=== PATIENT | female | born 1940 | race Two or more races ===

== ENCOUNTER 2024-04-20 11:55 | Inpatient (IN) | payer MEDICAID, OTHER ==
[~2024-04-20] VITALS: Ht 147.3 cm; Wt 63.6 kg
[2024-04-20 12:44] LABS: Basophils # (auto) 0 10 ^3/uL (0-0.2); Eosinophils # (auto) 0.1 10 ^3/uL (0-0.8); Hemoglobin 13.3 g/dL (12.2-16.2); Lymphocytes # (auto) 1.6 10 ^3/uL (0.4-5.4); Mean Corpuscular Hgb Conc. 33.1 g/dL (32.0-36.0); Monocytes # (auto) 0.2 10 ^3/uL (0-1.3)
[2024-04-20 12:46] LABS: Alanine Aminotransferase 22 U/L (7-40); Alkaline Phosphatase 157 U/L (46-116); Anion Gap 8 (5-15); Aspartate Aminotransferase 45 U/L (13-40); Bilirubin, Total 0.8 mg/dL (0.2-1.0); Calcium 9.7 mg/dL (8.5-10.1); Carbon Dioxide 24 mmol/L (20-30); Chloride 106 mmol/L (98-107); Glucose 107 mg/dL (74-106); Potassium 3.3 mmol/L (3.5-5.1); Sodium 138 mmol/L (136-145); Total Protein 6.6 g/dL (5.7-8.2)
[2024-04-20 12:47] LABS: Basophils % (auto) 0.4 % (0.0-2.0); Blood Urea Nitrogen < 5 mg/dL (9-23); Eosinophils % (auto) 2.2 % (0.0-7.0); Hematocrit 40.1 % (36.0-46.0); Mean Corpuscular Hemoglobin 33.7 pg (28.0-32.0); Mean Corpuscular Volume 101.7 fL (80.0-100.0); Monocytes % (auto) 3.1 % (0.0-12.0); Neutrophils # (auto) 3.1 10 ^3/uL (1.6-8.6); Neutrophils % (auto) 62.3 % (37.0-80.0); Red Blood Cells 3.95 10^6/uL (4.0-5.20); Red Cell Distribution Width 13.9 % (11.8-14.3)
[2024-04-20] MEDS ORDERED: ACETAMINOPHEN 325 MG TAB PO PRN (17:45)
[2024-04-20] MEDS ORDERED: NITROGLYCERIN 0.4 MG SL TAB SL PRN (17:45)
[2024-04-20] MEDS ORDERED: DOCUSATE SOD 100 MG CAP PO PRN (17:45)
[2024-04-20 18:00] VITALS: PULSE 83; RESP 14; O2SAT 94
[2024-04-20] MEDS: SODIUM CHLORIDE 0.9% 500 ML IVB ONE (18:12)
[2024-04-20] MEDS: SODIUM CHLORIDE 0.9% 500 ML IV ONE (18:12)
[2024-04-20] MEDS: POTASSIUM CHL 20MEQ/100ML 100 ML IV ONE (18:34)
[2024-04-20 19:41] VITALS: PULSE 82; RESP 29; O2SAT 94
[2024-04-20] MEDS: ONDANSETRON HCL 4 MG/2 ML VIAL IV ONE (19:47)
[2024-04-20] MEDS: MORPHINE SULFATE 4 MG/ML SYR/VIAL IV ONE (19:48)
[2024-04-20] MEDS: MORPHINE SULFATE INJ 2 MG/ml SYRG IV PRN (20:06)
[2024-04-20] MEDS: ONDANSETRON HCL 4 MG/2 ML VIAL IV PRN (20:06)
[2024-04-21] VITALS (7 sets, daily range): BP systolic 92–98; BP diastolic 48–63; PULSE 110–133; RESP 22–28; O2SAT 95–98
[2024-04-21] MEDS: HYDROcodone-ACET 5/325MG TAB PO PRN (02:54)
[2024-04-21 05:38] LABS: Basophils # (auto) 0 10 ^3/uL (0-0.2); Eosinophils # (auto) 0 10 ^3/uL (0-0.8); Hemoglobin 12.9 g/dL (12.2-16.2); Monocytes # (auto) 0.4 10 ^3/uL (0-1.3); Neutrophils # (auto) 8.3 10 ^3/uL (1.6-8.6)
[2024-04-21 05:42] LABS: Hematocrit 37.9 % (36.0-46.0); Lymphocytes # (auto) 0.6 10 ^3/uL (0.4-5.4); Lymphocytes % (auto) 6.1 % (10.0-50.0); Mean Corpuscular Hemoglobin 34.7 pg (28.0-32.0); Mean Corpuscular Hgb Conc. 33.9 g/dL (32.0-36.0); Mean Corpuscular Volume 102.1 fL (80.0-100.0); Monocytes % (auto) 4.5 % (0.0-12.0); Neutrophils % (auto) 89.4 % (37.0-80.0); Red Blood Cells 3.71 10^6/uL (4.0-5.20); Red Cell Distribution Width 14.1 % (11.8-14.3); White Blood Cell 9.3 10^3/uL (4.4-10.8)
[2024-04-21 05:53] LABS: Alanine Aminotransferase 17 U/L (7-40); Alkaline Phosphatase 92 U/L (46-116); Anion Gap 8 (5-15); BUN/Creatinine Ratio 14.7 (10.0-20.0); Blood Urea Nitrogen 10 mg/dL (9-23); Calcium 9.1 mg/dL (8.5-10.1); Carbon Dioxide 20 mmol/L (20-30); Chloride 111 mmol/L (98-107); Glucose 97 mg/dL (74-106); Potassium 4.2 mmol/L (3.5-5.1); Sodium 139 mmol/L (136-145)
[2024-04-21 05:54] LABS: Albumin 3.4 g/dL (3.2-4.8); Aspartate Aminotransferase 35 U/L (13-40); Bilirubin, Total 0.7 mg/dL (0.2-1.0); Total Protein 5.6 g/dL (5.7-8.2)
[2024-04-21] MEDS: ALBUMIN 5% 250 ML IV ONE (06:07)
[2024-04-21 08:38] LABS: Triglycerides 83 mg/dL (< 150)
[2024-04-21 08:39] LABS: LDL Cholesterol 60 mg/dL (< 100)
[2024-04-21 08:40] LABS: Cholesterol 139 mg/dL (< 200); HDL Cholesterol 57 mg/dL (40-59)
[2024-04-21] MEDS ORDERED: cefTRIAXone 1GM/50ML D5W 50 ML IV SCH (09:00)
[2024-04-21 09:02] LABS: Lipase 21 U/L (12-53)
[2024-04-21] MEDS: cefTRIAXone 1GM/50ML D5W 50 ML IV ONE (09:22)
[2024-04-21] MEDS ORDERED: PHENYLEPHRINE IV 250 ML IV SCH (09:45)
[2024-04-21] MEDS: PHENYLEPHRINE IV 250 ML IV ONE (09:51)
[2024-04-21] MEDS ORDERED: AZITHROMYCIN 500MG/ 250ML 250 ML IV SCH (10:00)
[2024-04-21 10:18] LABS: Lactic Acid w/Reflex 4.1 mmol/L (0.4-2.0)
[2024-04-21 10:30] LABS: Urine Bacteria FEW /hpf (None Seen); Urine Blood Negative /uL (Negative); Urine Clarity Turbid (Clear); Urine Color Orange (Yellow); Urine Hyaline Cast FEW /lpf (0 - 2); Urine Mucus FEW (None Seen); Urine Protein, UAD 1+ (Negative); Urine Specific Gravity 1.029 (1.001-1.035); Urine Urobilinogen Normal (Negative); Urine WBC 6 /hpf (0 - 5)
[2024-04-21] MEDS: PHENYLEPHRINE INJ 80 MG in SODIUM CHL 0.9% 242 ML IV SCH (10:39)
[2024-04-21 10:42] LABS: Base Excess -13.7 mmol/L (-2.0-2.0)
[2024-04-21] MEDS ORDERED: SODIUM CHLORIDE 0.9% 1,000 ML IV SCH (10:45)
[2024-04-21] MEDS: SODIUM CHLORIDE 0.9% 1,000 ML IV ONE ×2 (10:45→11:13)
[2024-04-21] MEDS ORDERED: VANCOMYCIN PER PHARMACY 0 MG IV SCH (11:00)
[2024-04-21] MEDS ORDERED: fentaNYL Drip 2500mCg/250mlNS 250 ML IV SCH (11:00)
[2024-04-21] MEDS ORDERED: PROPOFOL 100 ML IV SCH (11:00)
[2024-04-21 11:03] LABS: INR 1.32 (0.9-1.15); Partial Thromboplastin Time 32.5 SEC (24.5-34.5); Prothrombin Time 13.7 sec (9.3-11.8)
[2024-04-21] MEDS: ETOMIDATE (2MG/ML) 20ML VIAL IV ONE (11:19)
[2024-04-21] MEDS: ROCURONIUM 10MG/ML 10ML VIAL IV ONE (11:20)
[2024-04-21] MEDS: LORazepam 2MG/ML-1ML VIAL ONE (11:30)
[2024-04-21] MEDS: SODIUM BICARB 8.4% 50Meq/50ml SYR Vial IV ONE (11:30)
[2024-04-21] MEDS ORDERED: LABETALOL HCL 5 MG/ML 4ML SYRINGE IV PRN (11:30)
[2024-04-21] MEDS: ENOXAPARIN SOD 30 MG/0.3 ML SYRINGE SC ONE (11:31)
[2024-04-21] MEDS: IOHEXOL 350 MG/ML 100ML IJ ONE (12:02)
[2024-04-21] MEDS: NOREPINEPHRINE 8 MG/250ML KIT 250 ML IV SCH (12:15)
[2024-04-21] MEDS: PANTOPRAZOLE 40 MG/10 ML VIAL INJ IV ONE (12:16)
[2024-04-21] MEDS: MAGNESIUM SULFATE 1GM/100ML 100 ML IV ONE (12:17)
[2024-04-21] MEDS: LORazepam 2MG/ML-1ML VIAL IV ONE (12:40)
[2024-04-21] MEDS: NOREPINEPHRINE 8 MG/250ML KIT 250 ML IV ONE (12:58)
[2024-04-21] MEDS: SODIUM BICARB 50mEq/50ml Vial 150 ML in D5W 5% 1,000 ML IV SCH (13:31)
[2024-04-21] MEDS: CEFEPIME 1GM/ 50ML 50 ML IV ONE (13:41)
[2024-04-21 13:42] LABS: Base Excess -11.5 mmol/L (-2.0-2.0)
[2024-04-21] MEDS: VANCOMYCIN 750mg/150ml 150 ML IV ONE (13:47)
[2024-04-21] MEDS ORDERED: CEFEPIME 1GM/ 50ML 50 ML IV SCH (14:00)
[2024-04-21] MEDS: VASOPRESSIN 20 UNIT/ML ONE (16:32)
[2024-04-21] MEDS: VASOPRESSIN 20 UNITS in SODIUM CHL 0.9% 99 ML IV SCH (16:33)
[2024-04-21] MEDS ORDERED: ENOXAPARIN SOD 30 MG/0.3 ML SYRINGE SC ONE (17:00)
[2024-04-21 17:46] LABS: Urine Bacteria FEW /hpf (None Seen); Urine Blood 3+ /uL (Negative); Urine Clarity Turbid (Clear); Urine Color Orange (Yellow); Urine Hyaline Cast FEW /lpf (0 - 2); Urine Mucus FEW (None Seen); Urine Protein, UAD 2+ (Negative); Urine Specific Gravity 1.028 (1.001-1.035); Urine Urobilinogen Normal (Negative); Urine WBC 4 /hpf (0 - 5)
[2024-04-21 19:21] LABS: Free T4 (Free Thyroxine) 0.89 ng/dL (0.89-1.76)
[2024-04-21 19:22] LABS: Free T3 1.43 pg/mL (2.3-4.2)
[2024-04-21] MEDS: CEFEPIME 1GM/ 50ML 50 ML IV SCH (20:15)
[2024-04-21] MEDS: ALBUMIN 25% 50 ML IV ONE (20:58)
[2024-04-21 21:30] LABS: COVID19 ANTIGEN SOFIA FIA NEGATIVE (NEGATIVE); Rapid Influenza A Negative (Negative); Rapid Influenza B Negative (Negative)
[2024-04-21] MEDS: BUMETANIDE 2.5mg/10ml (0.25 mg/ml) INJ IV ONE (21:43)
[2024-04-21] MEDS: LORazepam 2MG/ML-1ML VIAL IV PRN (22:12)
[2024-04-21] MEDS: AMIODARONE BOLUS KIT 100 ML IV ONE (23:14)
[2024-04-21] MEDS: AMIODARONE HCL (50 MG/ ML) 3 ML VIAL IV ONE (23:14)
[2024-04-21] MEDS: AMIODARONE 450mg/250ml AE 250 ML IV SCH (23:55)
[2024-04-21] MEDS: AMIODARONE 450mg/250ml AE 250 ML IV ONE (23:55)
[2024-04-22] VITALS (68 sets, daily range): BP systolic 86–139; BP diastolic 47–67; PULSE 89–119; RESP 16–30; TEMP 99–101.1; O2SAT 91–100
[2024-04-22] MEDS: VASOPRESSIN 20 UNIT/ML ONE (01:13)
[2024-04-22] MEDS: SODIUM BICARB 8.4% 50Meq/50ml SYR Vial IV ONE (04:17)
[2024-04-22 06:05] LABS: Hemoglobin 12.7 g/dL (12.2-16.2); White Blood Cell 12.9 10^3/uL (4.4-10.8)
[2024-04-22] MEDS: AMIODARONE 450mg/250ml AE 250 ML IV SCH (06:07)
[2024-04-22 06:09] LABS: Hematocrit 38.5 % (36.0-46.0); Mean Corpuscular Hemoglobin 34.1 pg (28.0-32.0); Mean Corpuscular Hgb Conc. 33.1 g/dL (32.0-36.0); Red Blood Cells 3.74 10^6/uL (4.0-5.20); Red Cell Distribution Width 14.8 % (11.8-14.3)
[2024-04-22 06:20] LABS: Basophils % (manual) 0 (0.0-2.0); Blast Cells 0; Eosinophils % (manual) 0 (0-7); Promyelocytes % 0; Reactive Lymphocytes 0
[2024-04-22 06:25] LABS: Alanine Aminotransferase 21 U/L (7-40); Alkaline Phosphatase 54 U/L (46-116); Anion Gap 15 (5-15); Aspartate Aminotransferase 58 U/L (13-40); Blood Urea Nitrogen 15 mg/dL (9-23); Calcium 8.4 mg/dL (8.5-10.1); Carbon Dioxide 18 mmol/L (20-30); Chloride 108 mmol/L (98-107); Glucose 97 mg/dL (74-106); Lactic Acid w/Reflex 7.7 mmol/L (0.4-2.0); Magnesium 1.5 mg/dL (1.6-2.6); Potassium 3.8 mmol/L (3.5-5.1); Sodium 141 mmol/L (136-145)
[2024-04-22 06:26] LABS: Bilirubin, Total 0.8 mg/dL (0.2-1.0); Phosphorus 4.4 mg/dL (2.4-5.1); Total Protein 4.8 g/dL (5.7-8.2)
[2024-04-22 06:34] LABS: Band Neutrophils % (manual) 37; Lymphocytes % (manual) 11 (10.0-50.0); Metamyelocytes % 2; Monocytes % (manual) 11 (0-12); Myelocytes % 1; Platelet Estimate Adequate
[2024-04-22] MEDS: MEROPENEM 1GM IVPB 50 ML IV ONE (07:30)
[2024-04-22 07:47] LABS: Base Excess -7.7 mmol/L (-2.0-2.0)
[2024-04-22] MEDS ORDERED: cefTRIAXone 1GM/50ML D5W 50 ML IV SCH (09:00)
[2024-04-22] MEDS: MAGNESIUM SULFATE 1GM/100ML 100 ML IV ONE (09:40)
[2024-04-22] MEDS: FUROSEMIDE 40 MG/4 ML VIAL IV ONE (09:41)
[2024-04-22] MEDS ORDERED: ENOXAPARIN SOD 30 MG/0.3 ML SYRINGE SC SCH (10:00)
[2024-04-22] MEDS: ENOXAPARIN SOD 30 MG/0.3 ML SYRINGE SC SCH (10:00)
[2024-04-22] MEDS: PANTOPRAZOLE 40 MG/10 ML VIAL INJ IV SCH (10:00)
[2024-04-22] MEDS ORDERED: VANCOMYCIN 750mg/150ml 150 ML IV SCH (11:00)
[2024-04-22 11:18] LABS: Base Excess -6.8 mmol/L (-2.0-2.0)
[2024-04-22] MEDS ORDERED: ACETAMINOPHEN 325 MG RECT SUPP PR PRN (11:30)
[2024-04-22] MEDS: HYDROCORTISONE SOD SUCC 100 MG/2ML INJ VIAL IV SCH (14:58)
[2024-04-22] MEDS: VANCOMYCIN 750mg/150ml 150 ML IV SCH (15:03)
[2024-04-22] MEDS: FUROSEMIDE INJECTION 100 MG in SODIUM CHL 0.9% 100 ML IV SCH (15:06)
[2024-04-22] MEDS: MEROPENEM 1GM IVPB 50 ML IV SCH (16:33)
[2024-04-22] MEDS ORDERED: FUROSEMIDE 40 MG/4 ML VIAL IV SCH (18:00)
[2024-04-22 18:47] LABS: Protein, Urine 23.9 mg/dL (0.0-11.9); Protein, Urine 24.6 mg/dL (0.0-11.9)
[2024-04-22 18:49] LABS: Creatinine, Urine 15.94 mg/dL (30.0-125.0); Urine Protein/Creatinine Ratio 1.5
[2024-04-22 18:50] LABS: Creatinine, Urine 16.14 mg/dL (30.0-125.0); Urine Protein/Creatinine Ratio 1.52
[2024-04-22 20:11] LABS: Chloride 104 mmol/L (98-107); Potassium 3.3 mmol/L (3.5-5.1); Sodium 139 mmol/L (136-145)
[2024-04-22 20:12] LABS: Anion Gap 13 (5-15); Calcium 7.8 mg/dL (8.5-10.1); Carbon Dioxide 22 mmol/L (20-30)
[2024-04-22 20:17] LABS: BUN/Creatinine Ratio 18.2 (10.0-20.0); Blood Urea Nitrogen 18 mg/dL (9-23); Glucose 80 mg/dL (74-106)
[2024-04-23] VITALS (106 sets, daily range): BP systolic 67–167; BP diastolic 17–68; PULSE 88–144; RESP 13–33; TEMP 97.7–99.3; O2SAT 81–100
[2024-04-23] MEDS: POTASSIUM CHL 20MEQ/100ML 100 ML IV SCH (02:03)
[2024-04-23 05:14] LABS: Hematocrit 34.6 % (36.0-46.0); Hemoglobin 11.6 g/dL (12.2-16.2); Mean Corpuscular Hemoglobin 33.9 pg (28.0-32.0); Mean Corpuscular Hgb Conc. 33.6 g/dL (32.0-36.0); Red Blood Cells 3.42 10^6/uL (4.0-5.20); Red Cell Distribution Width 14.5 % (11.8-14.3); White Blood Cell 22.2 10^3/uL (4.4-10.8)
[2024-04-23 05:17] LABS: Basophils % (manual) 0 (0.0-2.0); Blast Cells 0; Eosinophils % (manual) 0 (0-7); Myelocytes % 0; Promyelocytes % 0; Reactive Lymphocytes 0
[2024-04-23 05:33] LABS: Band Neutrophils % (manual) 26; Lymphocytes % (manual) 5 (10.0-50.0); Metamyelocytes % 2; Monocytes % (manual) 6 (0-12); Platelet Estimate Decreased
[2024-04-23 05:34] LABS: Alanine Aminotransferase 35 U/L (7-40); Albumin 2.5 g/dL (3.2-4.8); Alkaline Phosphatase 79 U/L (46-116); Anion Gap 11 (5-15); Aspartate Aminotransferase 103 U/L (13-40); BUN/Creatinine Ratio 21.3 (10.0-20.0); Blood Urea Nitrogen 19 mg/dL (9-23); Calcium 7.8 mg/dL (8.7-10.4); Carbon Dioxide 26 mmol/L (20-30); Chloride 102 mmol/L (98-107); Glucose 93 mg/dL (74-106); Magnesium 1.5 mg/dL (1.6-2.6); Sodium 139 mmol/L (136-145)
[2024-04-23 05:35] LABS: Total Protein 4.2 g/dL (5.7-8.2)
[2024-04-23 05:37] LABS: Lactic Acid w/Reflex 9.4 mmol/L (0.4-2.0)
[2024-04-23] MEDS: SODIUM CHLORIDE 0.9% 500 ML IV ONE (06:30)
[2024-04-23 07:01] LABS: Base Excess -2.7 mmol/L (-2.0-2.0)
[2024-04-23] MEDS ORDERED: MAGNESIUM SULFATE 1GM/100ML 100 ML IV ONE (08:30)
[2024-04-23] MEDS: FUROSEMIDE 100 MG/10ML VIAL IV SCH (09:24)
[2024-04-23] MEDS: MAGNESIUM SULFATE 1GM/100ML 100 ML IV SCH (09:28)
[2024-04-23 10:46] LABS: Base Excess -2.6 mmol/L (-2.0-2.0)
[2024-04-23] MEDS ORDERED: HYDROcodone-ACET 5/325MG TAB PO PRN (12:30)
[2024-04-23] MEDS ORDERED: AMIODARONE 450mg/250ml AE 250 ML IV SCH (12:30)
[2024-04-23] MEDS: MORPHINE SULFATE INJ 2 MG/ml SYRG IV PRN (12:49)
[2024-04-23 13:29] LABS: Base Excess -1.8 mmol/L (-2.0-2.0)
[2024-04-23] MEDS: AMIODARONE 450mg/250ml AE 250 ML IV SCH (18:00)
[2024-04-23 21:01] LABS: Base Excess 3.7 mmol/L (-2.0-2.0)
[2024-04-23] MEDS: HYDROCORTISONE SOD SUCC 100 MG/2ML INJ VIAL IV SCH (21:10)
[2024-04-24] VITALS (97 sets, daily range): BP systolic 91–132; BP diastolic 30–69; PULSE 79–116; RESP 13–27; TEMP 97.9–99; O2SAT 90–99
[2024-04-24 04:46] LABS: Alanine Aminotransferase 64 U/L (7-40); Albumin 2.6 g/dL (3.2-4.8); Alkaline Phosphatase 103 U/L (46-116); Anion Gap 10 (5-15); Aspartate Aminotransferase 166 U/L (13-40); BUN/Creatinine Ratio 19.8 (10.0-20.0); Bilirubin, Total 1.4 mg/dL (0.2-1.0); Blood Urea Nitrogen 18 mg/dL (9-23); Calcium 8.7 mg/dL (8.7-10.4); Carbon Dioxide 27 mmol/L (20-30); Chloride 101 mmol/L (98-107); Glucose 54 mg/dL (74-106); Magnesium 2.2 mg/dL (1.6-2.6); Potassium 4.3 mmol/L (3.5-5.1); Sodium 138 mmol/L (136-145)
[2024-04-24 04:47] LABS: Total Protein 4.7 g/dL (5.7-8.2)
[2024-04-24 04:53] LABS: Lactic Acid w/Reflex 5.6 mmol/L (0.4-2.0)
[2024-04-24 07:12] LABS: Base Excess 0.9 mmol/L (-2.0-2.0)
[2024-04-24 07:19] LABS: Hematocrit 40.7 % (36.0-46.0); Hemoglobin 13.4 g/dL (12.2-16.2); Mean Corpuscular Volume 100.2 fL (80.0-100.0); Red Blood Cells 4.06 10^6/uL (4.0-5.20); Red Cell Distribution Width 14.6 % (11.8-14.3); White Blood Cell 23.3 10^3/uL (4.4-10.8)
[2024-04-24 07:36] LABS: Basophils % (manual) 0 (0.0-2.0); Blast Cells 0; Eosinophils % (manual) 0 (0-7); Metamyelocytes % 0; Myelocytes % 0; Promyelocytes % 0; Reactive Lymphocytes 0
[2024-04-24 08:00] LABS: Lymphocytes % (manual) 4 (10.0-50.0); Monocytes % (manual) 4 (0-12)
[2024-04-24 08:01] LABS: Band Neutrophils % (manual) 12
[2024-04-24 08:02] LABS: Anisocytosis Slight; Macrocytosis Slight; Platelet Estimate Decreased
[2024-04-24 08:06] LABS: Immunoglobulin A 95 mg/dL (64-422); Immunoglobulin G, Serum 630 mg/dL (586-1602); Immunoglobulin M 29 mg/dL (26-217)
[2024-04-24] MEDS ORDERED: MICAFUNGIN SODIUM 100 MG in SODIUM CHL 0.9% 100 ML IV SCH (13:30)
[2024-04-24] MEDS: MICAFUNGIN SODIUM 100 MG in SODIUM CHL 0.9% 100 ML IV SCH (17:43)
[2024-04-24] MEDS: NOREPINEPHRINE 8 MG/250ML KIT 250 ML IV SCH (17:45)
[2024-04-24] MEDS: FUROSEMIDE INJECTION 100 MG in SODIUM CHL 0.9% 100 ML IV SCH (18:39)
[2024-04-25] VITALS (85 sets, daily range): BP systolic 91–129; BP diastolic 27–56; PULSE 45–102; RESP 12–22; TEMP 97.2–98.2; O2SAT 51–100
[2024-04-25 04:08] LABS: Chloride 104 mmol/L (98-107); Potassium 3.7 mmol/L (3.5-5.1); Sodium 140 mmol/L (136-145)
[2024-04-25 04:09] LABS: Anion Gap 7 (5-15); Carbon Dioxide 29 mmol/L (20-30)
[2024-04-25 04:10] LABS: Calcium 8.5 mg/dL (8.5-10.1)
[2024-04-25 04:14] LABS: Glucose 96 mg/dL (74-106)
[2024-04-25 04:18] LABS: Red Blood Cells 3.47 10^6/uL (4.0-5.20)
[2024-04-25 04:20] LABS: Hematocrit 34.6 % (36.0-46.0); Hemoglobin 11.8 g/dL (12.2-16.2); Mean Corpuscular Hgb Conc. 34.1 g/dL (32.0-36.0); Mean Corpuscular Volume 99.7 fL (80.0-100.0); Red Cell Distribution Width 14.7 % (11.8-14.3); White Blood Cell 25.6 10^3/uL (4.4-10.8)
[2024-04-25 04:21] LABS: Blood Urea Nitrogen 36 mg/dL (9-23)
[2024-04-25 04:44] LABS: Basophils % (manual) 0 (0.0-2.0); Blast Cells 0; Eosinophils % (manual) 0 (0-7); Metamyelocytes % 0; Myelocytes % 0; Promyelocytes % 0; Reactive Lymphocytes 0
[2024-04-25 06:54] LABS: Band Neutrophils % (manual) 12; Lymphocytes % (manual) 1 (10.0-50.0); Monocytes % (manual) 4 (0-12); Platelet Estimate Decreased
[2024-04-25] MEDS: VANCOMYCIN 750mg/150ml 150 ML IV SCH (10:19)
[2024-04-25] MEDS ORDERED: LORazepam 2MG/ML-1ML VIAL IV PRN (17:45)
[2024-04-25] MEDS: MORPHINE SULFATE INJ 2 MG/ml SYRG IV PRN (18:10)
[2024-04-26 14:06] LABS: Albumin 2.1 g/dL (2.9-4.4); Alpha-1-Globulin 0.3 g/dL (0.0-0.4); Alpha-2-Globulin 0.5 g/dL (0.4-1.0); Gamma Globulin 0.6 g/dL (0.4-1.8); Globulin Total 1.7 g/dL (2.2-3.9); Protein Total Serum 3.8 g/dL (6.0-8.5)
== END 2024-04-25 18:42 | DRG 720 ==
LOC: ER 11:55 → OVERFLOW 17:40 → ICU WEST 04-22 10:03
PROVIDERS: ADMIT Internal Medicine Pulmonary Disease; ATTEND Internal Medicine Pulmonary Disease
PROC: 06HY33Z Insertion of Infusion Device into Lower Vein, Percutaneous Approach (ICD-10-PCS; principal; 2024-04-21)
PROC: B54BZZA Ultrasonography of Right Lower Extremity Veins, Guidance (ICD-10-PCS; 2024-04-21)
PROC: 5A09357 Assistance with Respiratory Ventilation, Less than 24 Consecutive Hours, Continuous Positive Airway Pressure (ICD-10-PCS; 2024-04-21)
PROC: 5A0935A Assistance with Respiratory Ventilation, Less than 24 Consecutive Hours, High Flow/Velocity Cannula (ICD-10-PCS; 2024-04-21)
PROC: 5A09457 Assistance with Respiratory Ventilation, 24-96 Consecutive Hours, Continuous Positive Airway Pressure (ICD-10-PCS; 2024-04-22)
PROC: 5A0945A Assistance with Respiratory Ventilation, 24-96 Consecutive Hours, High Flow/Velocity Cannula (ICD-10-PCS; 2024-04-23)
PROC: 5A09357 Assistance with Respiratory Ventilation, Less than 24 Consecutive Hours, Continuous Positive Airway Pressure (ICD-10-PCS; 2024-04-25)
DX: A41.9 Sepsis, unspecified organism (principal); J96.01 Acute respiratory failure with hypoxia; R65.21 Severe sepsis with septic shock; G93.41 Metabolic encephalopathy; I50.43 Acute on chronic combined systolic (congestive) and diastolic (congestive) heart failure; J15.69 Pneumonia due to other Gram-negative bacteria; D69.6 Thrombocytopenia, unspecified; E87.4 Mixed disorder of acid-base balance; I21.A1 Myocardial infarction type 2; J15.9 Unspecified bacterial pneumonia; J90 Pleural effusion, not elsewhere classified; N17.9 Acute kidney failure, unspecified; Z66 Do not resuscitate; E86.0 Dehydration; E87.6 Hypokalemia; Z20.822 Contact with and (suspected) exposure to COVID-19; M06.9 Rheumatoid arthritis, unspecified; I49.3 Ventricular premature depolarization; I48.0 Paroxysmal atrial fibrillation; E83.42 Hypomagnesemia; N28.89 Other specified disorders of kidney and ureter; R62.7 Adult failure to thrive; Z96.643 Presence of artificial hip joint, bilateral; Z90.710 Acquired absence of both cervix and uterus; Z68.29 Body mass index [BMI] 29.0-29.9, adult
CPT/HCPCS: 36415; 36600; 71045; 74176; 76604; 76775; 80048; 80053; 80061; 80202; 81001; 82088; 82306; 82384; 82533; 82570; 82607; 82784; 82805; 83036; 83605; 83690; 83735; 83835; 83880; 84100; 84155; 84156; 84165; 84244; 84300; 84439; 84443; 84481; 84484; 85007; 85025; 85027; 85379; 85610; 85730; 86334; 87040; 87081; 87086; 87426; 87804; 93005; 93306; 93970; 94660; 99291; C9113; G0378; J2185; J2248; J2405; J3480